=== PATIENT | male | born 1960 | race Caucasian/White ===

== ENCOUNTER 2021-10-06 07:55 | Day surgery (SDC) | payer BC ==
[2021-10-01 11:44] LABS: Absolute Lymphocytes (CBC) 1.4 K/uL (0.7-4.9); Hematocrit 44.9 % (39.6-49.0); Lymphocytes % 18.2 % (15.3-44.8); RBC Red Blood Cell Count 4.97 M/uL (4.33-5.43)
[2021-10-01 11:51] LABS: Protime INR 1.08
[2021-10-01 11:58] LABS: BUN Blood Urea Nitrogen 13 mg/dL (7-18); Bicarbonate 31 mmol/L (21-32); Glucose Level 157 mg/dL (74-106); Potassium 3.5 mmol/L (3.5-5.1); Sodium Level 137 mmol/L (136-145)
--- NOTE | 2021-10-01 12:17 | RAD REPORT ---
EXAM DESCRIPTION: RAD - Chest Pa And Lat (2 Views) - 10/01/2021 11:27 am CLINICAL HISTORY: pre procedure screening COMPARISON: CT chest 09/29/2021 TECHNIQUE: Frontal and lateral views of the chest were obtained. FINDINGS: The lungs are clear of peripheral mass consolidation. Minimally prominent interstitial pat tern is believed baseline. Trachea is midline. Heart size is normal and central vasculature is withi n normal limits. No pneumothorax or pleural effusions seen. Posterior costophrenic angle blunting is present. The recent CT study showed no pleural effusion. No acute bony finding noted. No aortic abn ormality. IMPRESSION: No acute cardiopulmonary process.
[2021-10-01 13:16] LABS: Urine Appearance CLEAR (Clear); Urine Color YELLOW (Yellow)
[2021-10-01 13:17] LABS: Urine Bilirubin NEGATIVE (Negative); Urine Blood 3+ (Negative); Urine Glucose NEGATIVE (Negative); Urine Microscopic Reflex ORDER UMIC; Urine Protein NEGATIVE (Negative); Urine Specific Gravity 1.015 (1.005-1.030); Urine Urobilinogen 0.2 mg/dL (0.2-1.0)
[2021-10-01 13:25] LABS: Urine Bacteria <20 /HPF (NONE SEEN)
[~2021-10-06 07:55] MED LIST: CLINDAMYCIN INJ 600 MG in NA CHLORIDE 0.9% 50 ML IV SCH; Gentamicin Inj 180 MG in NA CHLORIDE 0.9% 100 ML IVPB SCH
[2021-10-06] MEDS: Ringers Lactate 1,000 ML IV ONE (08:15)
[2021-10-06] MEDS ORDERED: FENTANYL CITR 100 MCG/2 ML ONE (08:31)
[2021-10-06] MEDS ORDERED: LIDOCAINE 1% MPF 5 ML VIAL ONE ×2 (08:31→10:07)
[2021-10-06] MEDS ORDERED: MIDAZOLAM HCL 2 MG/2 ML INJ ONE (08:31)
[2021-10-06] MEDS ORDERED: propofoL 200 MG/20 ML VIAL IV ONE (08:31)
[2021-10-06] MEDS ORDERED: ROCURONIUM 50 MG/5 ML VIAL IV ONE ×2 (08:48→09:12)
[2021-10-06] MEDS ORDERED: KETOROLAC 30 MG/ML INJ ONE (09:06)
[2021-10-06] MEDS ORDERED: dexAMETHasone 10 MG/ML VIAL ONE (09:06)
[2021-10-06] MEDS ORDERED: ONDANSETRON 4 MG/2 ML VIAL ONE (09:06)
[2021-10-06] MEDS ORDERED: GLYCOPYRROLATE 0.2 MG/ML SYR ONE ×2 (09:13→10:13)
[2021-10-06] MEDS ORDERED: NS 0.9% VIAL 10 ML ONE (09:14)
[2021-10-06] MEDS ORDERED: NEOSTIGMINE 1 MG/ML -5 ML ONE (09:14)
[2021-10-06] MEDS ORDERED: EPHEDRINE SULF 50 MG/ML VIAL ONE (09:14)
[2021-10-06] MEDS ORDERED: GEMCITABINE HCL 26.3 ML IVPB ONE (09:30)
[2021-10-06] MEDS ORDERED: OPIUM/BELLADONNA SUPPOS (30-16.2 MG) PR ONE (10:11)
[2021-10-06] MEDS ORDERED: HYDROCODONE/APAP 5/325 MG TAB PO PRN (11:07)
[2021-10-06] MEDS ORDERED: LIDOCAINE JELLY 2% 5 ML SYRINGE TOP ONE (12:12)
[2021-10-06 15:19] VITALS: BP 135/74; TEMP 98; O2SAT 100
--- NOTE | 2021-10-07 10:37 | OP ---
Surgeon: JAVIER RODRIGUEZ Preoperative Diagnosis: Extensive bladder tumor involving left lateral wall and bladder neck. Postoperative Diagnosis: Extensive bladder tumor involving left lateral wall and bladder neck. Principal Procedures: 1.Transurethral resection of a bladder tumor, extensive, greater than 7 cm in total diameter. 2.Intravesical instillation of gemcitabine 2 g in 50 cc normal saline. Findings: Bladder tumor involving the entirety of the left lateral wall extending to the dome as wel l as posteriorly and into the bladder neck where circumferential involvement of papillary urothelial tumor was seen. The tumor extended also into the trigone and the bladder neck inferiorly surrounding the left ureteral orifice. Indication For Procedure: Mr. Carroll presented to the Urology Clinic with irritative lower urinary s ymptoms and history of gross hematuria. He underwent cystoscopic evaluation, which revealed the pres ence of the extensive bladder tumor and was counseled on the need for operative resection. Subsequen t CT urography was performed, which did not reveal any upper tract urothelial filling defects, but di d identify the presence of a renal mass suspicious for renal cell. The detailed findings of the CT w ere not discussed since it was done within the last few days prior to surgery, and so I counseled the patient preoperatively that we would discuss this extensively in the weeks to come. Procedure In Detail: The patient was consented in the preoperative holding area before being transfe rred to the operative suite where general anesthesia was induced. He was given clindamycin along wit h gentamicin 180 mg IV antimicrobial prophylaxis and Pneumoboots were provided for DVT prophylaxis. He was placed in the lithotomy position, padded and secured to the table appropriately. His genitali a were prepped using Hibiclens and draped in standard fashion. The case was begun using urethral bre nds to dilate the meatus and fossa navicularis to 30-Monegasque. I was then able to pass a 26-Monegasque bip olar resectoscope sheath via the urethra and into his bladder with ease. As had been previously note d, the prostatic urethral component of the bladder neck had visible papillary tumor circumferentially projecting into the lumen. I was able to surpass this and enter the bladder, where on survey of the rest of the bladder, the tumor was extensive and did extend along the entire posterolateral wall of the bladder on the left into the anterior wall of the bladder extensively involving the entire surfac e of the bladder on the left side extending likely from its origin within the bladder neck or left la teral wall. As a result, I began resection of the tumor that was visible and accessible posteriorly and in the left lateral wall, as the patient had just undergone muscle relaxation and I did this to m inimize the risk of obturator kick. Once much of the tumor had been resected from the left lateral w all, I then resected the tumor from the bladder neck circumferentially. As the tumor was extensive, Ellik evacuation was required to remove many of the chips and the blood from the tumor that was resec sabrina. I then continued the resection into the anterior wall of the bladder, headed towards the dome o n the left side and also extending anteriorly into the right side of the bladder. This resection was difficult due to the need to manually compress the bladder in the suprapubic region in order to acce ss the tumor, which was extending from the bladder neck in that region. Once this was successfully m ostly removed, I then turned my attention back posteriorly where I continued to resect any additional sessile papillary tumor involving the posterolateral surface of the bladder and extending to the lev el around the ureteral orifice. I was finally able to visualize the left ureteral orifice discretely , and I resected tumor that was surrounding it, both posteriorly and distally in the region of the bl adder neck. The ureteral orifice itself did not require resection, and with it in site, I was able t o fulgurate any bleeding vessels from the resection sites around it. I then continued careful search for bleeding and fulgurating any bleeding vessels until the area was mostly hemostatic except for so me venous ooze. Again Ellik evacuation was required to clear all the bladder tumor chips that were r emoved, and I again carefully surveyed the bladder wall decompressed for any bleeding vessels and ful gurated them. Once adequate hemostasis had been obtained, I was able to survey his bladder in its en tirety in detail and I was able to remove any residual papillary tumor that was visible or fulgurate any clearly superficial areas in between resection sites. While some resections were deep within the muscle, no fat was visible indicative of perforation. I was able to extensively fulgurate any and a ll bleeding vessels until the returning efflux of urine and fluid was very light pink. As a result, I again Ellik evacuated his bladder to remove any circulating tumor cells and blood, and I then fulgu rated some bleeders from the bladder neck within the prostatic urethra. Once hemostatic with no sign s of significant bleeding, I then left his bladder full and removed the resectoscope. Surveying the urethra on the way out, to make sure no additional mucosal lesions were found, none were seen. As a result, I then placed a 20-Monegasque 2-way Franklin catheter into his bladder with ease and placed 30 cc of sterile water in the balloon. I then manually irrigated his bladder using a 60 cc catheter tip syri nge and normal saline, and the efflux was very light pink. As a result, I allowed his bladder to com pletely decompress and then retrograde instilled 2 g of gemcitabine in 50 cc of normal saline. The f luid was clamped into his bladder and a leg bag was attached for ease of later drainage/evacuation. I then towelled off his genitalia extensively and wrapped it around the penis and the catheter insert ion to absorb any bladder spasm induced leakage of the chemotherapeutic agent around the skin. The c atheter bag itself and the catheter were placed within fluid impermeable drapes. The patient was the n taken out of the lithotomy position, awakened from general anesthesia, transferred to a stretcher, and then transferred to the recovery room in good condition. Of note, I gave him a belladonna and op iate suppository intraanally prior to taking him out of the lithotomy position. Complications: None. Discharge Disposition: He will need to follow up in the Urology Clinic to discuss not only the patho logy of the bladder tumor resected and next steps required, but he will also require extensive discus ramona of the new diagnosis of a renal mass suspicious for renal cell carcinoma. This should be done w ithin the next few weeks and they informed me they are to have an appointment for October 23. I will discharge the patient home with a few days of antimicrobial therapy and we will allow the catheter t o remain in place on discharge for at least 3-5 days to allow re-mucosalization and healing of what w as a very extensive resection of his bladder before he will be allowed to void again. As such, I would recommend a voiding trial next Tuesday or Tuesday in the Urology Clin ic. WR/MODL Voice ID: [id number] Report ID: [id number]
== END 2021-10-06 12:40 | disposition home or self-care (01) ==
LOC: OR 07:55
PROVIDERS: ATTEND Urology
PROC: 3E0K705 Introduction of Other Antineoplastic into Genitourinary Tract, Via Natural or Artificial Opening (ICD-10-PCS; 2021-10-06)
PROC: 0TBB8ZX Excision of Bladder, Via Natural or Artificial Opening Endoscopic, Diagnostic (ICD-10-PCS; principal; 2021-10-06 09:00)
DX: C67.9 Malignant neoplasm of bladder, unspecified (principal); N40.1 Benign prostatic hyperplasia with lower urinary tract symptoms; R31.0 Gross hematuria; I10 Essential (primary) hypertension; E78.00 Pure hypercholesterolemia, unspecified; Z20.822 Contact with and (suspected) exposure to COVID-19
CPT/HCPCS: 52240; 51720; 93005; 87088; 85025; 87086; 80048; 36415; 85610; 88305; 71046; U0003; J2704; J1580; J2250; J3010; J1100; J2710; J9201; J7120; J2405; 81003; 81015

== ENCOUNTER 2021-11-10 06:24 | Day surgery (SDC) | payer BC ==
[2021-11-10] MEDS ORDERED: Ringers Lactate 1,000 ML IV ONE (06:42)
[2021-11-10] MEDS ORDERED: Gentamicin Inj 160 MG in NA CHLORIDE 0.9% 100 ML IVPB ONE (07:00)
[2021-11-10] MEDS ORDERED: CLINDAMYCIN 600MG/D5W 600 MG/50 ML BAG IV ONE (07:00)
[2021-11-10] MEDS ORDERED: FENTANYL CITR 100 MCG/2 ML ONE (07:16)
[2021-11-10] MEDS ORDERED: propofoL 200 MG/20 ML VIAL IV ONE (07:16)
[2021-11-10] MEDS ORDERED: MIDAZOLAM HCL 2 MG/2 ML INJ ONE (07:16)
[2021-11-10] MEDS ORDERED: LIDOCAINE 1% MPF 5 ML VIAL ONE (07:17)
[2021-11-10] MEDS ORDERED: ONDANSETRON 4 MG/2 ML VIAL ONE (07:50)
[2021-11-10] MEDS ORDERED: KETOROLAC 30 MG/ML INJ ONE (07:50)
[2021-11-10] MEDS ORDERED: dexAMETHasone 10 MG/ML VIAL ONE (07:51)
[2021-11-10] MEDS ORDERED: CODEINE 30MG/APAP 300MG TAB PO PRN (09:49)
[2021-11-10] MEDS ORDERED: PHENAZOPYRIDINE 100MG TAB PO ONE ×2 (09:49→11:18)
[2021-11-10 09:51] VITALS: O2SAT 99
[2021-11-10 13:52] VITALS: BP 137/69; TEMP 97.2
--- NOTE | 2021-11-11 12:52 | OP ---
Surgeon: JAVIER RODRIGUEZ Preoperative Diagnoses: Urothelial carcinoma of the bladder, high-grade lamina propria invasive. Postoperative Diagnoses: Urothelial carcinoma of the bladder, high-grade lamina propria invasive. Procedures: 1.Cystoscopy with bladder biopsies, converted to TURBT. 2.Examination under anesthesia. Indication For Procedure: Mr. Carroll presented to the Urology Clinic following operative evaluation on 10/06/2021, where a very extensive bladder tumor was resected revealing pathologic stage T1 high-g rade urothelial carcinoma. Because the risk of definitive muscular invasion was at least 35%, he was counseled and recommended for restaging TURBT and examination under anesthesia. As a result, he pre sents today for that evaluation. Procedure In Detail: The patient was consented in the preoperative holding area before being transfe rred to the operative suite where general anesthesia was induced. He was given clindamycin and genta micin IV antimicrobial prophylaxis due to a penicillin allergy and Pneumoboots were provided for DVT prophylaxis. He was placed in a lithotomy position, padded and secured to the table appropriately. His genitalia were prepped using Hibiclens and he was draped in standard fashion. The case was begun using a 22-Grenadian rigid cystoscope to traverse the urethra and into the bladder with ease. The blad nella was then surveyed, and the previously resected tumor in the left lateral wall of the bladder exte nding to the region posteriorly in the bladder just behind the trigone as well as anteriorly within t he bladder wall involving the bladder neck anteriorly was surveyed. There was significant fibrinous debris from the prior resection and intravesical gemcitabine administration. Along the periphery of the resection, the mucosa was somewhat edematous, but there was no evident papillary tumor recurrence noted there or elsewhere throughout the bladder, which was surveyed in its entirety. The left and r ight ureteral orifices were orthotopic within the trigone and not directly involved though the left u reteral orifice was very near to the prior site of resection. As a result, I began utilizing the cys toscope to biopsy the areas along the periphery of the tumor, and after a few biopsies had been taken , it became bloody enough that it was difficult to visualize adequately for continued sampling and si nce the area was so extensive, I wanted to sample the entirety of the region previously resected; so I employed urethral sounds to dilate the meatus and fossa navicularis to 30-Grenadian before using the v isual obturator and the 26-Grenadian resectoscope sheath to traverse the urethra and into the bladder. I then was able to irrigate the blood and clot from within the bladder and fulgurate arterial bleedin g vessels before resecting additional tissue from the base of the tumor and peripherally in order to more extensively sample the prior resection site. Once this was completed, I then proceeded to caref ully fulgurate any and all bleeding and oozing venous vessels. In the end, it was still somewhat ooz y in the region of the left ureteral orifice, which I avoided fulgurating out of an effort to avoid i njuring the ureteral orifice. As a result, after removing all bladder specimen chips out of the blad nella, I then placed a 22-Grenadian 3-way Franklin catheter into his bladder, and I placed 30 cc of sterile w ater in the balloon. I then irrigated his bladder with normal saline and connected him to CBI and th e returning efflux of urine was light pink with slow to moderate drip. He was taken out of the litho bo position, awakened from general anesthesia, transferred to a stretcher, and then transferred to the recovery room in good condition. Complications: None immediately apparent. Discharge Disposition: He should follow up in the Urology Clinic in about 2 weeks' time to review th e results of the pathology, and we will plan instillation of intravesical BCG induction course to sta rt thereafter in about 3 weeks' time to allow re-mucosalization and healing as much as possible. Celestina or to instilling the BCG, we will confirm absence of significant and ongoing hematuria, either gross or microscopic in addition to abse nce of infection. VANE/MODL Voice ID: [id number] Report ID: [id number]
== END 2021-11-10 11:46 | disposition home or self-care (01) ==
LOC: OR 06:24
PROVIDERS: ATTEND Urology
PROC: 0TBB8ZX Excision of Bladder, Via Natural or Artificial Opening Endoscopic, Diagnostic (ICD-10-PCS; principal; 2021-11-10 07:30)
DX: C68.9 Malignant neoplasm of urinary organ, unspecified (principal); N28.89 Other specified disorders of kidney and ureter; Z20.820 Contact with and (suspected) exposure to varicella; Z20.822 Contact with and (suspected) exposure to COVID-19
CPT/HCPCS: 87086; 88305; 52235; U0003; J2704; J1580; J2250; J3010; J1100; J7120; J2405; 87088

== ENCOUNTER 2022-03-09 06:37 | Day surgery (SDC) | payer BC ==
[2022-03-04 14:21] LABS: SARS-CoV-2 Antigen Rapid Res Negative (Negative)
[2022-03-09] MEDS ORDERED: CLINDAMYCIN 600MG/D5W 600 MG/50 ML BAG IV SCH (07:00)
[2022-03-09] MEDS ORDERED: Ringers Lactate 1,000 ML IV ONE (07:00)
[2022-03-09] MEDS ORDERED: Gentamicin Inj 160 MG in NA CHLORIDE 0.9% 100 ML IV SCH (07:00)
[2022-03-09] MEDS ORDERED: dexAMETHasone 10 MG/ML VIAL ONE (07:04)
[2022-03-09] MEDS ORDERED: VECURONIUM 10 MG/VIAL IV ONE (07:04)
[2022-03-09] MEDS ORDERED: MIDAZOLAM HCL 2 MG/2 ML INJ ONE (07:04)
[2022-03-09] MEDS ORDERED: FENTANYL CITR 100 MCG/2 ML ONE (07:04)
[2022-03-09] MEDS ORDERED: propofoL 200 MG/20 ML VIAL IV ONE (07:04)
[2022-03-09] MEDS ORDERED: NS 0.9% VIAL 10 ML ONE ×2 (07:05→08:07)
[2022-03-09] MEDS ORDERED: KETOROLAC 30 MG/ML INJ ONE (07:05)
[2022-03-09] MEDS ORDERED: ONDANSETRON 4 MG/2 ML VIAL ONE (07:05)
[2022-03-09] MEDS ORDERED: LIDOCAINE 1% MPF 5 ML VIAL ONE (07:05)
[2022-03-09] MEDS ORDERED: SUCCINYLCHOLINE 20 MG/ML (10 ML) IV ONE (07:15)
[2022-03-09] MEDS ORDERED: Phenylephrine HCl 10 MG/ML 1 ML VIAL ONE (08:07)
[2022-03-09] MEDS ORDERED: CODEINE 30MG/APAP 300MG TAB PO PRN (08:37)
[2022-03-09] MEDS ORDERED: PHENAZOPYRIDINE 100MG TAB PO ONE (08:37)
--- NOTE | 2022-03-09 08:38 | OP ---
Surgeon: JAVIER RODRIGUEZ Preoperative Diagnoses: 1.Pathologic grade T1 high-grade urothelial carcinoma. 2.Status post induction BCG. 3.Bladder lesion. Postoperative Diagnoses: 1.Pathologic grade T1 high-grade urothelial carcinoma. 2.Status post induction BCG. 3.Bladder lesion. Principle Procedure: Cystoscopy with bladder biopsies and fulguration. Indication For Procedure: Mr. Carroll underwent cystoscopy and bladder biopsies and followup of gross hematuria identification of a bladder tumor cystoscopically on 09/25/2021 with subsequent TURBT plus intravesical gemcitabine given on 10/06/2021 revealing pathologic stage T1 high-grade urothelial car cinoma. He also had a 3.2 cm left complex renal lesion suspicious for renal cell carcinoma. He has undergone an induction course of BCG for his urothelial carcinoma and subsequent followup cystoscopy revealed subtle areas of mucosal change, which biopsy was recommended to rule out the potential for a ny residual malignancy. In the meantime, he has also undergone a left robot-assisted laparoscopic pa rtial nephrectomy at [facility]. Procedure In Detail: The patient was consented in the preoperative holding area before being transfe rred to the operative suite where general anesthesia was induced. He was given clindamycin and genta micin 160 mg IV antimicrobial prophylaxis. Pneumo boots were provided for DVT prophylaxis. He was p laced in the lithotomy position, padded and secured to the table appropriately. His genitalia were p repped using Hibiclens and he was draped in standard fashion. The case was begun using a 22-Amharic r igid cystoscope to traverse the urethra and into the bladder with ease. The bladder was surveyed in its entirety, and there were no papillary mucosal lesions, foreign bodies or stones. The ureteral or ifices were difficult to visualize with the 30-degree lens; so a 70-degree lens was employed, and the ureteral orifices were visualized. The bladder neck was also surveyed and was free of any mucosal l esion or mucosal change. Within the area of prior tumor resection in the left lateral wall posterior ly, there was subtle mucosal change likely granulomatous in nature. This area was targeted using col d cup biopsy forceps and the 30-degree lens and multiple biopsies were taken from that region. These were sent for pathologic analysis, and then I utilized a Bugbee electrode at a cautery setting of 30 to fulgurate the base of the biopsy sites and stop any and all bleeding. His bladder was then decom pressed, and again surveyed in its entirety using both the 30 and 70-degree lens and no additional mu cosal lesions were noted or any oozing of blood. As a result, his bladder was decompressed and he wa s taken out of the lithotomy position. He was then awakened from general anesthesia, transferred to a stretcher, and then transferred to the recovery room in good condition. Complications: None. Discharge Disposition: He should follow up in the Urology Clinic as scheduled for next maintenance B CG after about 2 weeks to allow the mucosal healing to take place, and we will review and discuss the pathology of these bladder biopsies at that time to ensure no ongoing active malignancy indicative o f BCG refractory urothelial carcinoma. VANE/MANJEET Voice ID: [id number] Report ID: [id number]
[2022-03-09 08:43] VITALS: O2SAT 96
[2022-03-09 09:50] LABS: Potassium 3.9 mmol/L (3.5-5.1)
[2022-03-09 09:57] VITALS: BP 120/60; TEMP 98.3
== END 2022-03-09 09:43 | disposition home or self-care (01) ==
LOC: OR 06:37 → EEVIPCON 14:00
PROVIDERS: ATTEND Urology
PROC: 0TBB8ZX Excision of Bladder, Via Natural or Artificial Opening Endoscopic, Diagnostic (ICD-10-PCS; principal; 2022-03-09 07:30)
DX: C67.9 Malignant neoplasm of bladder, unspecified (principal); N32.9 Bladder disorder, unspecified
CPT/HCPCS: 87088; 87086; 80048; 36415 ×2; 88305; 87811; 52204; J2704; J0330; J2370; J1580; J2250; J3010; J1100; J7120; J2405

== ENCOUNTER 2022-09-28 09:26 | Day surgery (SDC) | payer BC ==
[2022-09-13 11:23] LABS: Absolute Lymphocytes (CBC) 1.9 K/uL (0.7-4.9); Hematocrit 41.7 % (39.6-49.0); Lymphocytes % 26.8 % (15.3-44.8); MCV 88.4 fL (80-100); MPV 6.6 fL (7.6-11.3); RBC Red Blood Cell Count 4.72 M/uL (4.33-5.43)
[2022-09-13 11:26] LABS: Protime INR 1.02
[2022-09-13 11:36] LABS: Potassium 3.9 mmol/L (3.5-5.1)
--- NOTE | 2022-09-13 12:39 | RAD REPORT ---
EXAM DESCRIPTION: Ross Banks (2 Views)09/13/2022 11:35 am CLINICAL HISTORY: Hypertension/preop for genitourinary surgery COMPARISON: 2021 FINDINGS: The lungs appear clear of acute infiltrate. The heart is normal size IMPRESSION: No acute abnormalities displayed
--- NOTE | 2022-09-13 16:36 | EKG ---
Test Date: 2022-09-13 Test Time: 10:59:22 Report Developer: TOMMY MEASUREMENT RESULTS: Intervals: Rate: 67 VT: 160 QRSD: 100 QT: 406 QTc: 429 [place]: P: 40 VT: 160 QRS: 65 T: 39 INTERPRETIVE STATEMENTS: Normal sinus rhythm Incomplete right bundle branch block Borderline ECG Compared to ECG 10/01/2021 10:30:07 Incomplete right bundle-branch block now present Electronically Signed On 09-13-22 16:35:14 RETAIL SHIFT MANAGER by Bill Carrillo
[~2022-09-28 09:26] MED LIST changes: +CLINDAMYCIN 600MG/D5W 50 ML IV ONE; -CLINDAMYCIN INJ 600 MG in NA CHLORIDE 0.9% 50 ML IV SCH; +Gentamicin Inj 160 MG in NA CHLORIDE 0.9% 100 ML IV ONE; -Gentamicin Inj 180 MG in NA CHLORIDE 0.9% 100 ML IVPB SCH
[2022-09-28] MEDS ORDERED: Ringers Lactate 1,000 ML IV ONE (09:34)
[2022-09-28] MEDS ORDERED: CLINDAMYCIN 600MG/D5W 0 ML IV ONE (09:36)
[2022-09-28] MEDS ORDERED: FENTANYL CITR 100 MCG/2 ML ONE (10:19)
[2022-09-28] MEDS ORDERED: propofoL 200 MG/20 ML VIAL IV ONE (10:19)
[2022-09-28] MEDS ORDERED: MIDAZOLAM HCL 2 MG/2 ML INJ ONE (10:20)
[2022-09-28] MEDS ORDERED: ONDANSETRON 4 MG/2 ML VIAL ONE (10:20)
[2022-09-28] MEDS ORDERED: LIDOCAINE 1% MPF 5 ML VIAL ONE (11:03)
[2022-09-28] MEDS ORDERED: Phenylephrine HCl 10 MG/ML 1 ML VIAL ONE (11:09)
[2022-09-28] MEDS ORDERED: EPHEDRINE SULF 50 MG/ML VIAL ONE (11:23)
[2022-09-28] MEDS ORDERED: CODEINE 30MG/APAP 300MG TAB PO PRN (11:55)
[2022-09-28] MEDS ORDERED: PHENAZOPYRIDINE 100MG TAB PO ONE ×2 (11:55→12:43)
[2022-09-28 12:16] VITALS: BP 124/57; O2SAT 97
[2022-09-28 12:47] VITALS: TEMP 97.7
--- NOTE | 2022-09-28 13:53 | OP ---
Surgeon: JAVIER RODRIGUEZ Preoperative Diagnoses: 1.Bladder lesion. 2.History of high-grade T1 urothelial carcinoma of the bladder. Postoperative Diagnoses: 1.Bladder lesion. 2.History of high-grade T1 urothelial carcinoma of the bladder. Principal Procedure: Cystoscopy with multiple bladder biopsies targeted, and fulguration. Indication For Procedure: Mr. Carroll is a 62-year-old gentleman, who underwent resection of a large bladder tumor occupying the left lateral wall involving the bladder neck extending anteriorly reveale d to be a high-grade urothelial carcinoma, pathologic stage T1. He underwent restaging biopsies afte r receiving intravesical gemcitabine perioperatively following the first procedure, and those restagi ng biopsies were unremarkable for furtherance of the malignancy. As a result, he was counseled on th e benefit of BCG and received an induction course followed by a maintenance course of BCG therapy. H nathan presents today for bladder biopsies given the persistence of an erythematous irregular patch of muc lauryn in the left lateral wall of the bladder neck as well as a CX bladder monitor test that was slight ly elevated suggestive of the risk of occult urothelial malignancy. Procedure In Detail: The patient was consented in the preoperative holding area before being transfe rred to the operative suite where general anesthesia was induced. He was given clindamycin 600 mg an d gentamicin approximately 2-3 mg/kg IV antimicrobial prophylaxis. Pneumo boots were provided for DV T prophylaxis. He was placed in the lithotomy position, padded and secured to the table appropriatel y, and his genitalia were prepped with Hibiclens before being draped in standard fashion. The case w as begun using a 22-Armenian rigid cystoscope to traverse the urethra and enter the bladder with ease. The bladder was decompressed of fluid and urine and then refilled with sterile water, surveyed in it s entirety. Using both a 30-degree as well as a 70-degree lens, the bladder and the bladder neck reg ion as well as the prostatic urethra were surveyed in their entirety. Narrow band imaging was also e mployed to visualize the bladder. The bladder was free of any suspicious mucosal lesion within the e ntirety of the bladder surveyed including the bladder neck anteriorly, but in the left lateral wall n earest the bladder neck, there was the area of suspicious mucosa in the region of prior dominant tumo r resection. As a result, I utilized cold cup biopsy forceps to extensively sample that region and e ssentially resect all of the mucosa in the region of interest. Once that had been successfully perfo rmed, I utilized narrow band imaging again to confirm that the entirety of the area of mucosa that wa s suspicious had been removed, and once confirmed, I then switched back to the normal white light cys toscopy in order to fulgurate the entirety of the area using a Bugbee electrode at a cautery setting of 30. In the end, the bladder was decompressed and the area was completely hemostatic without a tra ce of bleeding. As a result, the scope was removed, and the patient was taken out of the lithotomy p osition. He was then awakened from general anesthesia, transferred to a stretcher, and then transfer red to the recovery room in good condition. Complications: None. Discharge Disposition: We will follow up the results of the pathology and as long as no evidence of malignancy is seen, we will plan to continue with maintenance BCG therapy as scheduled within the nex t few weeks. VANE/MANJEET Voice ID: [id number] Report ID: [id number]
== END 2022-09-28 13:00 | disposition home or self-care (01) ==
LOC: OR 09:26
PROVIDERS: ATTEND Urology
PROC: 0TBB8ZX Excision of Bladder, Via Natural or Artificial Opening Endoscopic, Diagnostic (ICD-10-PCS; principal; 2022-09-28 10:30)
DX: N32.9 Bladder disorder, unspecified (principal); I10 Essential (primary) hypertension; Z85.51 Personal history of malignant neoplasm of bladder; Z88.0 Allergy status to penicillin
CPT/HCPCS: 93005; 87088; 85025; 87086; 80048; 36415; 85610; 88305; 71046; 52204; J2704; J2001; J1580; J2250; J3010; J2405; J7120; J2370

== ENCOUNTER 2023-02-09 06:27 | Day surgery (SDC) | payer BC ==
[2023-02-08 08:30] LABS: Absolute Lymphocytes (CBC) 1.8 K/uL (0.7-4.9); Lymphocytes % 23.7 % (15.3-44.8); MCV 90.3 fL (80-100); MPV 6.8 fL (7.6-11.3); RBC Red Blood Cell Count 4.76 M/uL (4.33-5.43)
[2023-02-08 08:41] LABS: Potassium 4.1 mEq/L (3.5-5.1)
[2023-02-09] MEDS ORDERED: Ringers Lactate 1,000 ML IV ONE ×2 (06:59→08:26)
[2023-02-09] MEDS: CEFAZOLIN SODIUM 1 GM/VIAL ONE ×2 (07:14→07:33)
[2023-02-09] MEDS: BUPIVACAINE 0.5% PF 10 ML VIAL ONE ×2 (07:15→08:30)
[2023-02-09] MEDS ORDERED: CIPROFLOXACIN 400mg IV 400 MG/200 ML BAG IV ONE (07:38)
[2023-02-09] MEDS ORDERED: dexAMETHasone 10 MG/ML VIAL ONE ×2 (08:11→08:28)
[2023-02-09] MEDS ORDERED: KETOROLAC 30 MG/ML INJ ONE (08:11)
[2023-02-09] MEDS ORDERED: ONDANSETRON 4 MG/2 ML VIAL ONE (08:12)
[2023-02-09] MEDS ORDERED: FENTANYL CITR 100 MCG/2 ML ONE (08:27)
[2023-02-09] MEDS ORDERED: LIDOCAINE 2% MPF 5 ML VIAL ONE (08:27)
[2023-02-09] MEDS ORDERED: MIDAZOLAM HCL 2 MG/2 ML INJ ONE (08:27)
[2023-02-09] MEDS ORDERED: ROCURONIUM 50 MG/5 ML VIAL IV ONE ×2 (08:27→08:43)
[2023-02-09] MEDS ORDERED: propofoL 200 MG/20 ML VIAL IV ONE (08:27)
[2023-02-09] MEDS ORDERED: EPINEPHRINE/PF 1 MG/ML AMP ONE (08:30)
[2023-02-09] MEDS ORDERED: BUPIVACAINE 0.25% PF 10 ML VIAL ONE (08:31)
[2023-02-09] MEDS ORDERED: BUPIVACAINE 0.5% PF 10 ML VIAL ONE (08:31)
--- NOTE | 2023-02-09 08:53 | P.OP ---
Date of Service: 02/09/23 Preop diagnosis: Umbilical hernia Postop diagnosis: Same Procedure performed: Laparoscopic assisted repair of umbilical hernia Surgeon: Ag Waite MD Supervisor Packing Room: JOHN Sterling Estimated blood loss: Minimal Specimen: Hernia sac Findings: Findings as above Anesthesia: General Complications: None Drains: None Fluids and blood products: Nonapplicable Disposition: Recovery room Operative note: Patient brought to the OR and placed in supine position. General anesthesia begun. Patient prepped and draped in the usual sterile fashion. Marcaine 0.5% infiltrated locally. 15 blade used to make a 1 cm left upper quadrant incision. Subcutaneous tissue divided and bleeding controlled with cautery. Fascia identified and divided. #1 Vicryl stay suture placed. Peritoneal cavity entered with sharp and blunt dissection. Pneumoperitoneum established. 5 mm trocar placed under direct vision in the left lower quadrant. Laparoscopy revealed adhesed omentum to the hernia at the umbilicus. LigaSure used to divide the omentum from the hernia. Approximately 3 cm defect remained. A 3 cm vertical incision made over the hernia at the umbilicus. Subcutaneous tissue divided. Hernia sac identified and dissected free from the fascial edges. Hernia sac sent to pathology as specimen. Fascial edges clearly defined. 3 cm defect remained. #1 PDS running suture used to close the defect. Pneumoperitoneum reestablished. Then Bard balloon system oval in shape deployed in the standard fashion. Sorbitex used to secure the mesh to the peritoneal surface. Complete coverage of the hernia defect with 3 cm borders established. No evidence of bleeding or bowel injury appreciated. All trocars removed under direct vision. Stay sutures tied to each other to reapproximate the fascial defect. Subcutaneous was irrigated and bleeding controlled with cautery. 3-0 chromic used to approximate subcutaneous tissue and close skin. Sterile dressing applied. Patient awakened and taken to recovery room in good general condition. CC: Dr. Dejesus's office
[2023-02-09] MEDS ORDERED: HYDROCODONE/APAP 7.5/325 MG TAB PO PRN (08:55)
[2023-02-09] MEDS ORDERED: Mastisol Adhesive Liq ONE (08:59)
[2023-02-09] MEDS ORDERED: TAMSULOSIN 0.4 MG SR CAP ONE (10:44)
[2023-02-09] MEDS ORDERED: HYDROCODONE/APAP 7.5/325 MG TAB ONE (10:48)
[2023-02-09 12:02] VITALS: BP 127/70; TEMP 97.3; O2SAT 95
== END 2023-02-09 11:47 | disposition home or self-care (01) ==
LOC: OR 06:27
PROVIDERS: ATTEND Surgery
PROC: 0WUF4JZ Supplement Abdominal Wall with Synthetic Substitute, Percutaneous Endoscopic Approach (ICD-10-PCS; principal; 2023-02-09 07:30)
DX: K42.9 Umbilical hernia without obstruction or gangrene (principal); I10 Essential (primary) hypertension; R73.9 Hyperglycemia, unspecified; G47.33 Obstructive sleep apnea (adult) (pediatric)
CPT/HCPCS: 85025; 80048; 36415; 88302; 49591; J2704; J0171; J2001; J2250; J3010; J1100 ×2; J2405; J0744; J7120 ×2; J0690

== ENCOUNTER 2023-07-19 09:28 | Day surgery (SDC) | payer BC ==
[2023-07-15 10:48] LABS: Absolute Lymphocytes (CBC) 1.4 K/uL (0.7-4.9); Hematocrit 46.8 % (39.6-49.0); Lymphocytes % 17.5 % (15.3-44.8); MPV 6.9 fL (7.6-11.3); Platelets 266 thou/uL (152-406); RBC Red Blood Cell Count 5.14 M/uL (4.33-5.43)
[2023-07-15 10:53] LABS: Protime INR 1.19
--- NOTE | 2023-07-15 11:37 | RAD REPORT ---
EXAM DESCRIPTION: RAD - Chest Pa And Lat (2 Views) - 07/15/2023 10:43 am CLINICAL HISTORY: pdre op for surgery. Hypertension, asthma COMPARISON: Chest Pa And Lat (2 Views) dated 09/13/2022; Chest Pa And Lat (2 Views) dated 02/22/2022; C hest Pa And Lat (2 Views) dated 10/01/2021 TECHNIQUE: PA and lateral views of the chest were obtained. FINDINGS: The lungs are clear. Heart size is normal and central vasculature is within normal limits. No pleural effusion or pneumothorax seen. No acute bony finding noted. IMPRESSION: No acute cardiopulmonary process.
--- NOTE | 2023-07-15 13:39 | EKG ---
Test Date: 2023-07-15 Test Time: 11:24:48 Executive Compensation Analyst: TAVIARE MEASUREMENT RESULTS: Intervals: Rate: 76 AR: 164 QRSD: 102 QT: 398 QTc: 447 [place]: P: 60 AR: 164 QRS: 81 T: 71 INTERPRETIVE STATEMENTS: Normal sinus rhythm Incomplete right bundle branch block Borderline ECG Compared to ECG 09/13/2022 10:59:22 No significant changes Electronically Signed On 07-15-23 13:38:41 BAG MACHINE SET UP OPERATOR by Bill Carrillo
[2023-07-19] MEDS ORDERED: Ringers Lactate 1,000 ML IV ONE (09:51)
[2023-07-19] MEDS ORDERED: LIDOCAINE 1% MPF 5 ML VIAL ONE (11:55)
[2023-07-19] MEDS ORDERED: KETOROLAC 30 MG/ML INJ ONE (11:55)
[2023-07-19] MEDS ORDERED: ONDANSETRON 4 MG/2 ML VIAL ONE (11:55)
[2023-07-19] MEDS ORDERED: dexAMETHasone 10 MG/ML VIAL ONE (11:55)
[2023-07-19] MEDS ORDERED: propofoL 200 MG/20 ML VIAL IV ONE (11:55)
[2023-07-19] MEDS ORDERED: MIDAZOLAM HCL 2 MG/2 ML INJ ONE (11:55)
[2023-07-19] MEDS ORDERED: FENTANYL CITR 100 MCG/2 ML ONE (11:56)
[2023-07-19] MEDS: CEFAZOLIN SODIUM 1 GM/VIAL ONE ×2 (11:56→12:25)
[2023-07-19] MEDS ORDERED: CEFAZOLIN SODIUM 1 GM/VIAL ONE (12:11)
[2023-07-19] MEDS ORDERED: GLYCOPYRROLATE 0.2 MG/ML SYR ONE ×2 (12:47)
[2023-07-19 13:43] VITALS: O2SAT 97
[2023-07-19] MEDS ORDERED: PHENAZOPYRIDINE 100MG TAB PO ONE ×2 (13:45→14:05)
[2023-07-19] MEDS ORDERED: CODEINE 30MG/APAP 300MG TAB PO PRN (13:52)
--- NOTE | 2023-07-19 14:04 | OP ---
Surgeon: JAVIER RODRIGUEZ Preoperative Diagnoses: 1.Erythematous bladder patches/lesions. 2.History of T1 high-grade urothelial carcinoma. 3.Status post induction BCG in maintenance phase. Postoperative Diagnoses: 1.Erythematous bladder patches/lesions. 2.History of T1 high-grade urothelial carcinoma. 3.Status post induction BCG in maintenance phase. Principal Procedures: 1.Cystoscopy with multiple bladder biopsies and fulguration. 2.Urethral Franklin catheter placement. Findings: Erythematous and hemorrhagic mucosa involving the posterolateral pleitez of the bladder exte nding into the dome posteriorly bilaterally. Three samples from each side were taken and sent for pa thologic analysis. Indication For Procedure: Mr. Carroll is a 62-year-old gentleman with a history of T1 high-grade urot helial carcinoma involving the left lateral wall and bladder neck predominantly who underwent extensi ve TURBT and restaging TURBT without definitive detrusor invasion. He had been given intravesical ge mcitabine associated with each resection and subsequently was treated with an induction course of int ravesical BCG. He has since undergone surveillance cystoscopies with repeat biopsies because of eryt clint in the region of prior resections seen previously, and those biopsies have returned benign and o nly with chronic inflammation. He has been continued on maintenance BCG, and recently underwent surv eillance cystoscopy, which revealed these erythematous hemorrhagic patches involving the posterolater al dome of the bladder bilaterally that was present still 1 month following the last maintenance phas e of BCG. As a result, he was counseled on the risks of potential CIS of the bladder and the need fo r biopsies to confirm. Procedure In Detail: The patient was consented in the preoperative holding area before being transfe rred to the operative suite where general anesthesia was induced. He was given Ancef 2 g IV antimicr obial prophylaxis, and pneumo boots were provided for DVT prophylaxis. He was placed in the lithotom y position, padded and secured to the table appropriately, and his genitalia were prepped with Hibicl ens before being draped in standard fashion. The case was begun using the 22-Algerian rigid cystoscope to traverse the urethra and into the bladder with ease. The bladder was decompressed of fluid and u rine and then refilled with sterile water and surveyed in its entirety. As had previously been descr ibed, involving the posterior dome of the bladder extending bilaterally was this erythematous and sli ghtly irregular appearing mucosa with a slight degree of hemorrhage observed. As a result, I switche d for the optical cold cup biopsy forceps and began sampling the right side of the lesion involving t he posterior wall of the bladder into the dome and lateral wall. Three samples were taken from the e ntirety of the region of suspicion on the right side with fulguration performed after the initial 2 s amples were taken to allow visualization to most adequately target the third choice biopsy. I then f ulgurated the third biopsy site until it was hemostatic, and then I surveyed the left posterolateral dome of the bladder and targeted additional 3 sites there. After the first 2 sites of biopsies were taken, again I had to fulgurate the base because of the significant oozing that was occurring and obs curing visualization. Once hemostatic, I then surveyed the bladder in its entirety again, and there was an area between the biopsies on the right and the biopsies on the left that I then targeted for t he sixth and final biopsy which was sent with the left posterior dome bladder biopsy samples for path ologic analysis. I then used the Bugbee electrode again in a cautery setting of 30 to fulgurate the periphery and base of that lesion until it was hemostatic. I decompressed his bladder of fluid and u rine, and ensured complete hemostasis. Once hemostatic, with the bladder completely decompressed, I then irrigated the bladder to remove any tissue debris and clot, and then I refilled the bladder befo re placing an 18-Algerian coude tipped catheter with ease and with 10 cc of sterile water in the balloo n. The catheter was allowed to decompress and then connected to a leg bag, which was secured to his left upper thigh. He was then awakened from general anesthesia after being taken out of the lithotom y position. He was transferred to a stretcher, and then transferred to the recovery room in good con dition. Complications: None. Discharge Disposition: Since multiple biopsies were taken from a region of the bladder that is tradi tionally weaker and more subject to perforation, i.e., the dome of the bladder, I would like to leave a urethral catheter for at least 2 to 3 days to allow some time for bladder rest and healing. As a result, I would prefer for him to keep the catheter until Tuesday before it can be removed on Tuesday opal buitrago in the [facility]. He should subsequently be scheduled for followup within the next 2 wee ks to discuss the results of the biopsy pathology and also to discuss the findings of the CT scan. O f note, he will bring a CD of the CT scan performed at [facility] for my review. The patient apparently di d receive a report of the imaging and did have a degree of concern because of the findings of a poten tial new renal mass. VANE/MANJEET Voice ID: [id number] Report ID: [id number]
[2023-07-19] MEDS ORDERED: OXYBUTYNIN ER 5 MG TAB PO ONE (14:06)
[2023-07-19 15:56] VITALS: BP 150/77; TEMP 96.9
[2023-07-20] MEDS ORDERED: OXYBUTYNIN ER 5 MG TAB PO ONE (13:45)
== END 2023-07-19 14:58 | disposition home or self-care (01) ==
LOC: OR 09:28
PROVIDERS: ATTEND Urology
PROC: 0TBB8ZX Excision of Bladder, Via Natural or Artificial Opening Endoscopic, Diagnostic (ICD-10-PCS; principal; 2023-07-19 11:15)
DX: N32.9 Bladder disorder, unspecified (principal); Z85.51 Personal history of malignant neoplasm of bladder
CPT/HCPCS: 93005; 85025; 87086; 80048; 36415; 85610; 88305; 71046; 52204; J2704; J2001; J2250; J3010; J1100; J2405; J7120; J0690 ×2; 87088

== ENCOUNTER 2024-04-04 07:26 | Day surgery (SDC) | payer BC ==
[2024-04-02 08:44] LABS: Absolute Basophils 0.1 K/uL (0-0.5); Absolute Eosinophils 0.5 K/uL (0-0.5); Absolute Lymphocytes (CBC) 1.8 K/uL (0.7-4.9); Absolute Monocytes 0.7 K/uL (0.1-1.3); Absolute Neutrophil 3.6 K/uL (1.8-8.0); Basophils % 0.9 % (0-1.3); Eosinophils % 8.2 % (0-4.4); Hematocrit 42.3 % (39.6-49.0); Hemoglobin 14.1 g/dL (13.6-17.9); Lymphocytes % 26.7 % (15.3-44.8); MCHC 33.3 g/dL (32.0-36.0); MCV 90.2 fL (80-100); MPV 6.7 fL (7.6-11.3); Neutrophils % 53.2 % (41.7-73.7); Platelets 245 thou/uL (152-406); RBC Red Blood Cell Count 4.69 M/uL (4.33-5.43); Red Cell Distribution Width 13.5 % (12.1-15.2)
[2024-04-02 08:58] LABS: Anion Gap 7.6 mEq/L (5.0-15.0); Potassium 4.6 mEq/L (3.5-5.1)
[2024-04-04] MEDS ORDERED: Ringers Lactate 1,000 ML IV ONE (07:45)
[2024-04-04] MEDS ORDERED: FENTANYL CITR 100 MCG/2 ML ONE (08:56)
[2024-04-04] MEDS ORDERED: LIDOCAINE 2% MPF 5 ML VIAL ONE (08:56)
[2024-04-04] MEDS ORDERED: propofoL 200 MG/20 ML VIAL IV ONE (08:56)
[2024-04-04] MEDS ORDERED: ONDANSETRON 4 MG/2 ML VIAL ONE (08:56)
[2024-04-04] MEDS ORDERED: MIDAZOLAM HCL 2 MG/2 ML INJ ONE (08:57)
[2024-04-04] MEDS ORDERED: LIDOCAINE 1% MPF 30 ML VIAL ONE (09:01)
[2024-04-04] MEDS ORDERED: HEPARIN 5000 UNIT/ML 1 ML VIAL ONE (09:02)
[2024-04-04] MEDS ORDERED: NS 0.9% VIAL 20 ML ONE (09:02)
[2024-04-04] MEDS ORDERED: EPHEDRINE SULF 50 MG/ML VIAL ONE (09:40)
[2024-04-04] MEDS ORDERED: dexAMETHasone 4 MG/ML VIAL ONE (09:45)
--- NOTE | 2024-04-04 10:25 | P.OP ---
Date of Service: 04/04/24 Preop diagnosis: Kidney cancer Postop diagnosis: Same Procedure performed: Insertion of right IJ Port-A-Cath device, utilization of ul trasound and fluoroscopy Surgeon: Ag Waite MD Extension Work Director: None Estimated blood loss: Minimal Specimen: None Findings: Normal anatomy Anesthesia: General Complications: None Drains: None Fluids and blood products: Nonapplicable Disposition: Recovery room Operative note: Patient brought to the OR and placed in the supine position. General anesthesia began. Patient prepped and draped in usual sterile fashion. Marcaine 0.5% infiltrated locally. Ultrasound device used to isolate the right internal jugular vein in the right neck. 18-gauge needle used to access the right internal jugular vein. Guidewire passed. Position confirmed with fluoroscopy. 3 cm counterincision made on the right anterior chest. Subcutaneous tissue divided and pocket created. Bleeding controlled with cautery. Tunneling device used to tunnel the catheter between the 2 wounds. Seldinger technique used and the tip of the catheter placed in the SVC right atrial junction. Catheter cut to appropriate size and attached to the Port-A-Cath device. For Device attached to subcutaneous tissue with 3-0 Vicryl. Port flushed with heparin and packed with heparin with good blood flow. 3-0 chromic used to approximate subcutaneous tissue and close skin. Sterile dressing applied. Patient awakened and taken to recovery room in good general condition. Chest x-ray has been ordered. CC: Dr. Nj's office
--- NOTE | 2024-04-04 10:40 | RAD REPORT ---
Exam: Fluoroscopy for catheter placement CLINICAL HISTORY: Device placement catheter placement 4 fluoroscopic spot images obtained. Fluoroscopy time 0.4 minutes. Catheter placed into superior vena cava. Procedure performed by Dr. Waite
[2024-04-04] MEDS ORDERED: HYDROCODONE/APAP 7.5/325 MG TAB ONE (12:04)
[2024-04-04] MEDS: HYDROCODONE/APAP 7.5/325 MG TAB PO PRN (12:06)
[2024-04-04 12:37] VITALS: BP 135/74; O2SAT 100
[2024-04-04 12:38] VITALS: TEMP 97
--- NOTE | 2024-04-04 13:47 | RAD REPORT ---
Procedure: Chest Single View History: Device placement central venous catheter placement Comparison: none Findings: A central venous catheter has been placed into the SVC. No pneumothorax
== END 2024-04-04 12:34 | disposition home or self-care (01) ==
LOC: OR 07:26
PROVIDERS: ATTEND Surgery
PROC: 0JH60WZ Insertion of Totally Implantable Vascular Access Device into Chest Subcutaneous Tissue and Fascia, Open Approach (ICD-10-PCS; principal; 2024-04-04 09:00)
DX: C64.9 Malignant neoplasm of unspecified kidney, except renal pelvis (principal)
CPT/HCPCS: 85025; 80048; 36415; 71045; 76000; 36561; J1644 ×2; A4216; J2704; J1100; J2001 ×2; J2250; J3010; J2405; J7120; C1788

== ENCOUNTER 2024-08-14 12:57 | Day surgery (SDC) | payer BC ==
[2024-08-06 14:14] LABS: PT Prothrombin Time 11.7 SECONDS (9.4-12.5); Protime INR 1.12
[2024-08-06 14:15] LABS: Absolute Basophils 0.1 K/uL (0-0.5); Absolute Eosinophils 0.6 K/uL (0-0.5); Absolute Lymphocytes (CBC) 1.8 K/uL (0.7-4.9); Absolute Monocytes 0.8 K/uL (0.1-1.3); Basophils % 0.7 % (0-1.3); Eosinophils % 6.6 % (0-4.4); Hematocrit 43.1 % (39.6-49.0); Hemoglobin 15.3 g/dL (13.6-17.9); Lymphocytes % 19.6 % (15.3-44.8); MCH 31.3 pg (27.0-35.0); MCHC 35.4 g/dL (32.0-36.0); MCV 88.3 fL (80-100); MPV 7.2 fL (7.6-11.3); Neutrophils % 64.1 % (41.7-73.7); Nucleated Red Blood Cells % 0.1 % (0-0); Platelets 250 thou/uL (152-406); RBC Red Blood Cell Count 4.88 M/uL (4.33-5.43); Red Cell Distribution Width 13.1 % (12.1-15.2)
--- NOTE | 2024-08-06 15:16 | RAD REPORT ---
EXAM: Chest Pa And Lat (2 Views) HISTORY: 63 years Male Pre-op pending Bladder biopsy COMPARISON: 04/04/2024 FINDINGS: LUNGS/PLEURA: The lungs are clear. No pleural effusions or pneumothorax. No pulmonary edema. MEDIASTINUM: The mediastinal silhouette is within normal limits. CARDIAC: The cardiac silhouette is within normal limits. UPPER ABDOMEN: No significant abnormality. BONES: No acute abnormality. LINES/TUBES/OTHER: Right IJ approach Port-A-Cath with tip overlying the SVC. IMPRESSION: No evidence of acute cardiopulmonary disease.
--- NOTE | 2024-08-08 12:34 | EKG ---
Test Date: 2024-08-06 Test Time: 14:46:03 Take Down Inspector: BRADFORD MEASUREMENT RESULTS: Intervals: Rate: 85 ME: 180 QRSD: 110 QT: 388 QTc: 461 [place]: P: 73 ME: 180 QRS: 76 T: 69 INTERPRETIVE STATEMENTS: Normal sinus rhythm Incomplete right bundle branch block Borderline ECG Compared to ECG 01/11/2024 09:01:19 Incomplete right bundle-branch block now present Electronically Signed On 08-08-24 12:31:16 BEER BREWER by Gomez Ortez
[2024-08-14] MEDS: Ringers Lactate 1,000 ML IV ONE (12:57)
[2024-08-14] MEDS ORDERED: KETOROLAC 30 MG/ML INJ ONE (15:09)
[2024-08-14] MEDS ORDERED: dexAMETHasone 10 MG/ML VIAL ONE ×2 (15:09→16:02)
[2024-08-14] MEDS ORDERED: propofoL 200 MG/20 ML VIAL IV ONE (15:09)
[2024-08-14] MEDS ORDERED: FENTANYL CITR 100 MCG/2 ML ONE ×2 (15:09→16:01)
[2024-08-14] MEDS ORDERED: MIDAZOLAM HCL 2 MG/2 ML INJ ONE (15:09)
[2024-08-14] MEDS ORDERED: ONDANSETRON 4 MG/2 ML VIAL ONE (15:09)
[2024-08-14] MEDS: CEFAZOLIN SODIUM 2 GM/VIAL ONE (15:45)
--- NOTE | 2024-08-14 16:51 | P.OP ---
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 He was also incidentally found to have a renal mass involving his right kidney. He underwent resection of the bladder tumor and that was followed by adjuvant induction BCG. He then continued on maintenance therapy with BCG, but he began to develop irritative LUTS. Those LUTS were well-managed initially with Solifenacin alone, but following his initial partial nephrectomy of his right kidney, he had recurrence of a new renal mass involving the left kidney. This was also found to be renal cell carcinoma but a different subtype; so medical oncology recommended, following some genetic testing revealing VHL mutation, adjuvant Keytruda. He continued on the maintenance BCG with the starting of the Keytruda, and his LUTS began to progressively worsen requiring maximal medical therapy with Vesicare and Myrbetriq, but unfortunately his pain syndrome has progressively worsened despite this. He was prescribed amitriptyline, but he is yet to start that. Today, he complained of pain in the suprapubic region also involving the urethra and the perineal region. This pain tends to occur at the termination of voiding, consistent with likely spasmodic contraction of the bladder despite maximal medical therapy. TANIA today, 08/14/2024: Firm and slightly nodular right Gordy prostate, nontender, no periprostatic masses identified Bladder scan PVR 34 cc Preop urine culture no growth. My recommendation today: Initiate amitriptyline as previously prescribed, for bladder spasms and pelvic pain. Will obtain a PSA on follow-up, but no sooner than 4 to 6 weeks from today -mid September/October Procedure note: The patient was consented in the preoperative holding area before being transferred to the operative suite where general anesthesia was induced. He was given Ancef 2 g IV antimicrobial prophylaxis, and pneumoboots were provided for DVT prophylaxis. He was placed in the lithotomy position, padded and secured to the table appropriately. His genitalia was prepped with Hibiclens and he was draped in standard fashion. The case was begun using a 22 Paraguayan rigid cystoscope to traverse the urethra and into the bladder with ease. No urethral lesions were noted. Within the prostatic urethra, there was some lateral lobar hypertrophy, largely emanating from the right lateral lobe, consistent with the TANIA findings. There was also mild elevation of the bladder neck but it did not have an intravesically projecting median lobe. Upon entry into the bladder, the bladder was somewhat angry in appearance with erythematous patches that were large and occupying multifocal sites involving the right lateral wall extending into the posterior wall and posterior dome, and the left lateral wall extending into the anterior dome. As a result, I began performing targeted biopsies of each of the sites as follows: 1. Right lateral wall - at least 2 biopsies taken 2. Posterior wall -at least 2 biopsies taken 3. Dome anterior -at least 2 biopsies taken 4. Left lateral wall -at least 2 biopsies taken 5. Dome posterior -at least 2 biopsies taken Because the mucosa was incredibly friable and was bleeding even at the initiation of the case with minimal filling and distention, with each biopsy site taken, the degree of hematuria that would develop would be so much that it would require me to stop and fulgurate before I could target additional spots in the bladder for biopsy. As a result, multiple times spent switching between the biopsy instrumentation and the Bugbee electrode to fulgurate was performed. The case was done using sterile water and the cautery setting was 30 coag only. In the end, all the biopsy sites were completely hemostatic and no perforation of the bladder was noted. I irrigated the bladder and decompressed it completely looking for any signs of bleeding, fulgurating and a sparing fashion for any sites of ooze. However, given the difficulty urinating he has already expressed having experienced and the extensive number of biopsy sites taken, I elected to then place an 18 Paraguayan Franklin catheter. This was placed into his bladder with ease. About 20 cc of sterile water was placed in the balloon. The drainage of fluid and urine was light pink despite the extensive fulguration previously performed. Most of that bleeding was coming from nonbiopsied mucosa. He was then taken out of the lithotomy position, awakened from general anesthesia, transferred to a stretcher, and then transferred to the recovery room in good condition. Complications: None Discharge disposition: I would like him to keep the Franklin catheter for the next 2 days for bladder rest. During this time, he can consider starting on the amitriptyline tomorrow evening at bedtime. The urethral Franklin catheter can come out on or Tuesday at the patient's discretion. I will send him home with a few days of antimicrobial to act as an anti-inflammatory partially but also for prophylaxis while the catheter is in place. Follow-up should be established within the next couple of weeks to discuss the results of the pathology and next steps in management of his chronic pelvic pain. PSA will be obtained in mid September/early October given his nodular right Gordy prostate.
[2024-08-14] MEDS ORDERED: HYDROCODONE/APAP 5/325 MG TAB PO PRN (16:53)
[2024-08-14 17:04] VITALS: TEMP 97.4
[2024-08-14] MEDS ORDERED: OXYBUTYNIN ER 5 MG TAB PO ONE (17:20)
[2024-08-14] MEDS ORDERED: HYDROCODONE/APAP 5/325 MG TAB ONE (17:21)
[2024-08-14] MEDS ORDERED: PHENAZOPYRIDINE 100MG TAB PO ONE (17:21)
[2024-08-14] MEDS: PHENAZOPYRIDINE 100MG TAB PO ONE (17:31)
[2024-08-14] MEDS: OXYBUTYNIN ER 5 MG TAB PO ONE (17:31)
[2024-08-14 18:20] VITALS: BP 141/80; O2SAT 98
== END 2024-08-14 18:09 | disposition home or self-care (01) ==
LOC: OR 12:57
PROVIDERS: ATTEND Urology
PROC: 0TBB8ZX Excision of Bladder, Via Natural or Artificial Opening Endoscopic, Diagnostic (ICD-10-PCS; principal; 2024-08-14 14:45)
DX: N32.9 Bladder disorder, unspecified (principal); N30.20 Other chronic cystitis without hematuria; R39.89 Other symptoms and signs involving the genitourinary system; N32.81 Overactive bladder; Z85.51 Personal history of malignant neoplasm of bladder
CPT/HCPCS: 52204; 93005; 87088; 85025; 87086; 80048; 36415; 85610; 88305; 71046; J2704; J2250; J3010 ×2; J1100 ×2; J2405; J7120